=== PATIENT | female | born 1935 | race Caucasian/White ===

== ENCOUNTER 2024-05-21 10:49 | Outpatient (AMB) | payer MEDICARE, SELFPAY ==
--- NOTE | 2024-05-21 10:54 | MHC.OFFVIS ---
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 Brushing Operator Required: No Allergies Seasonal Allergies Allergy (Mild, Verified 05/21/24 10:55) Unknown Medication List - Last Reconciled 05/21/24 by Petra Villalobos MD alendronate (Fosamax) 70 mg PO QWEEK aspirin 81 mg PO DAILY cetirizine (Zyrtec) 10 mg PO DAILY PRN coenzyme Q10 (Ultra CoQ10) 75 mg PO DAILY glucosamine HCl 500 mg PO DAILY multivitamin 1 tab PO DAILY rosuvastatin 5 mg PO DAILY HPI Comments Details: 88y/o female comes here for evaluation of changes in mental status. she is accompanied by her niece who helps with history. In January of 2023 - she had slurred speech and was diagnosed with TIA. 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 ABout 1 month ago she called her friend and said she did not feel right. when the friend visited her next day , she seemed confused, combative,nonverbal. she was awake but was not responding.she was at [facility] for 10 days.? dehydration and dizziness. The episode lasted about 1 week.she was discharged to rehab . she had MRI brain, LP etc and was negative.Her niece did not have more information. She also has short term memory issues for over a year now. she used to live alone. Since her discharge - she has a friend that is staying with her. she reports lack of appetite. [facility] Medical History (Updated 05/21/24 @ 14:38 by Petra Villalobos MD) Altered mental status Dementia Vertigo TIA (transient ischemic attack) Osteoporosis Hypercholesteremia Social History (Updated 05/21/24 @ 11:04 by Nimo Marrero CMA) Household Members: None Housing: House Alcohol intake: current Comment: seldom Patient Tobacco Use Status: Never used Tobacco Physical Exam Vital Signs: Last Vital Signs Pulse 96 05/21/24 10:58 Resp 17 05/21/24 10:58 BP 112/62 05/21/24 10:58 Pulse Ox 99 08/21/24 10:58 Oxygen Delivery Method Room Air 05/21/24 10:58 BMI result Body Mass Index 29.5 Const General: cooperative, healthy appearing and comfortable Nutritional Appearance: average body habitus Orientation/consciousness: oriented to person and oriented to place Neuro Other: MOCA - see attached General: oriented to person, oriented to place, moves all extremities and No no focal motor deficits Cranial nerves: Yes Bilaterally intact EOM present, Yes Nystagmus not present, Yes Normal facial strength present and Yes Midline tongue present Cognition (Neuro): abnormal cognition Gait exam (Neuro): Antalgic gait present Motor exam (neuro): 5/5 motor strength present throughout and Normal motor muscle tone present throughout Deep tendon reflexes (DTR's): Right triceps reflex intensity grade: 2+, Left triceps reflex intensity grade: 2+, Rt Biceps (C5, C6): 2+, Left biceps reflex intensity grade: 2+, Right brachioradialis reflex intensity grade: 2+, Left brachioradialis reflex intensity grade: 2+, Right patellar reflex intensity grade: 2+ and Left patellar reflex intensity grade: 2+ Coordination: [id number] test normal Assessment & Plan Assessment & Plan (1) Dementia: Comment: vascular vs mixed Code(s): F03.90 - Unspecified dementia, unspecified severity, without behavioral disturbance, psychotic disturbance, mood disturbance, and anxiety Category: Medical (2) Altered mental status: Comment: ? dehydration TIAs ? Code(s): R41.82 - Altered mental status, unspecified Category: Medical Plan Will review reports from [facility] - MRI and recent admission reports she will benefit from moving to a more monitored setting like an Assisted Living facility Monitor her food and liquid intake Consider cognitive therapy and starting patient on memantine. Coding Level of Care Code New Pt Level 4 (00782) Diagnoses Dementia F03.90 Altered mental status R41.82
[2024-05-21 10:58] VITALS: BP 112/62; PULSE 96; RESP 17; O2SAT 99; BMI 29.5
== END 2024-05-21 12:17 | disposition home or self-care (01) ==
PROVIDERS: PCP Internal Medicine; Visit Provider Psychiatry & Neurology Neurology
DX: F03.90 Unspecified dementia, unspecified severity, without behavioral disturbance, psychotic disturbance, mood disturbance, and anxiety (principal); R41.82 Altered mental status, unspecified
CPT/HCPCS: 99204

== ENCOUNTER → 2024-05-21 10:49 | Outpatient (BNVA) | payer MEDICARE, SELFPAY | PROVIDERS: PCP Internal Medicine; Visit Provider Psychiatry & Neurology Neurology | DX: F03.90 Unspecified dementia, unspecified severity, without behavioral disturbance, psychotic disturbance, mood disturbance, and anxiety (principal); R41.82 Altered mental status, unspecified | CPT/HCPCS: 99202 ==